=== PATIENT | male | born 1940 | race Caucasian/White ===

== ENCOUNTER 2017-07-20 10:33 | Observation (INO) | payer MEDICARE ==
[~2017-07-20] VITALS: Ht 167.6 cm; Wt 75.0 kg
[~2017-07-20 10:33] MED LIST: ASPI81 PO; ATOR80TA PO; DICY1TAB26 PO; IMOD2TAB PO; METO25 PO; ZOFR4TAB3 SL
[2017-07-20 10:37] VITALS: BP 182/81; PULSE 80; RESP 18; TEMP 97.2; O2SAT 98
[2017-07-20 10:48] VITALS: BP 181/89; PULSE 77
[2017-07-20] MEDS ORDERED: ASPI-516 CHEW (10:55)
[2017-07-20] MEDS ORDERED: METO25TA3 PO ×2 (10:55→17:29)
[2017-07-20] MEDS ORDERED: ATOR80TA45 PO (10:55)
--- NOTE | 2017-07-20 11:10 | PD ---
HPI Chief Complaint: Cardiac Complaint Time Seen by Provider: 10:42 Travel History International Travel<30 days: No Contact w/Intl Traveler<30days: No Traveled to known affect area: No History of Present Illness HPI 77-year-old male presents with episode of dizziness and weakness and when he checked his heart rate it was 160. He performed vagal maneuvers after instruction by the cardiac rehab nurse and his heart rate came down and his symptoms improved. He states now he just feels tired and has a little bit of chest tightness. He states Dr. Carrera is his embedded firmware developer. He states his last cardiac intervention was 20 years ago when he goes to cardiac rehab just for continual maintenance. He denies other specific modifying factors. Quality is tightness. Severity is mild. PFSH Past Medical History Hx Anticoagulant Therapy: Yes Cancer: No Cardiac Catheterization: Yes Cardiovascular Problems: Yes High Cholesterol: Yes Coronary Artery Disease: Yes Diabetes: No Diminished Hearing: No Endocrine: No Gastrointestinal Disorders: Yes (GERD, HX ESOPH STRICTURE) Glaucoma: No Genitourinary: Yes (BPH/ FREQUENCY, HX "BENIGN" BLADDER TUMOR) Hepatitis: Yes (UNKNOWN TYPE) Hiatal Hernia: No Hypertension: Yes Immune Disorder: No Inguinal Hernia: Yes (LEFT SIDE REPAIR) Musculoskeletal: Yes (ARTHRITIS) Neurologic: No Psychiatric: Yes (CLAUSTRAPHOBIA) Respiratory: No Thyroid Disease: No Tetanus Vaccination: Unknown ?: Not Past Surgical History Abdominal Surgery: Yes (LEFT ING. HERNIA REP) AICD: No Cardiac Surgery: Yes (CABG) Coronary Artery Bypass Graft: Yes (5-way VESSEL 1997) Coronary Stent: Yes (x 4 1996) Genitourinary Surgery: Yes (TURP, CYSTO TURBT) Joint Replacement: No Pacemaker: No Other Surgery: Yes (inguinal hernia 2002) Social History Alcohol Use: No Tobacco Use: No Substance Use: No Allergies-Medications (Allergen,Severity, Reaction): Coded Allergies: iohexol (Unverified Allergy, Unknown, pt states no allergy to this, ) Uncoded Allergies: ANTIHISTAMINE (Allergy, Intermediate, obstructs urination, 11/02/16) Reported Meds & Prescriptions Reported Meds & Active Scripts Active Reported Aspirin 81 Mg Chew 81 Mg CHEW DAILY Metoprolol Tartrate 25 Mg Tab 12.5 Mg PO DAILY Atorvastatin (Atorvastatin Calcium) 80 Mg Tab 80 Mg PO HS Review of Systems Except as stated in HPI: all other systems reviewed are Neg Physical Exam Narrative GENERAL: 77 y/o male in no apparent distress SKIN: Focused skin assessment warm/dry. HEAD: Atraumatic. Normocephalic. EYES: Pupils equal and round. No scleral icterus. No injection or drainage. ENT: No nasal bleeding or discharge. Mucous membranes pink and moist. NECK: Trachea midline. CARDIOVASCULAR: Regular rate and rhythm. RESPIRATORY: No accessory muscle use. Clear to auscultation. Breath sounds equal bilaterally. GASTROINTESTINAL: Abdomen soft, non-tender, nondistended. MUSCULOSKELETAL: No obvious deformities. No clubbing. No cyanosis. NEUROLOGICAL: Awake and alert. No obvious cranial nerve deficits. Motor grossly within normal limits. Normal speech. PSYCHIATRIC: Appropriate mood and affect; insight and judgment normal. Data Data Last Documented VS Vital Signs Date Time Temp Pulse Resp B/P (MAP) Pulse Ox O2 Delivery O2 Flow Rate FiO2 07/20/17 10:48 77 181/89 (119) 07/20/17 10:37 97.2 18 98 Orders Orders Magnesium (Mg) (07/20/17 10:42) Phosphorus (Po4) (07/20/17 10:42) Complete Blood Count With Diff (07/20/17 10:42) Comprehensive Metabolic Panel (07/20/17 10:42) Ckmb (Isoenzyme) Profile (07/20/17 10:42) Troponin I (07/20/17 10:42) Act Partial Throm Time (Ptt) (07/20/17 10:42) Prothrombin Time / Inr (Pt) (07/20/17 10:42) Chest, Single Ap (07/20/17 ) Electrocardiogram (07/20/17 ) Iv Access Insert/Monitor (07/20/17 10:42) Ecg Monitoring (07/20/17 10:42) Oximetry (07/20/17 10:42) CKMB (07/20/17 10:50) CKMB% (07/20/17 10:50) Admit Order (Ed Use Only) (07/20/17 14:16) Labs Laboratory Tests Test 07/20/17 10:50 White Blood Count 6.1 TH/MM3 Red Blood Count 4.89 MIL/MM3 Hemoglobin 14.7 GM/DL Hematocrit 42.9 % Mean Corpuscular Volume 87.7 FL Mean Corpuscular Hemoglobin 30.0 PG Mean Corpuscular Hemoglobin Concent 34.2 % Red Cell Distribution Width 13.8 % Platelet Count 236 TH/MM3 Mean Platelet Volume 8.8 FL Neutrophils (%) (Auto) 62.3 % Lymphocytes (%) (Auto) 19.5 % Monocytes (%) (Auto) 11.1 % Eosinophils (%) (Auto) 6.4 % Basophils (%) (Auto) 0.7 % Neutrophils # (Auto) 3.8 TH/MM3 Lymphocytes # (Auto) 1.2 TH/MM3 Monocytes # (Auto) 0.7 TH/MM3 Eosinophils # (Auto) 0.4 TH/MM3 Basophils # (Auto) 0.0 TH/MM3 CBC Comment DIFF FINAL Differential Comment Prothrombin Time 10.5 SEC Prothromb Time International Ratio 1.0 RATIO Activated Partial Thromboplast Time 25.7 SEC Blood Urea Nitrogen 16 MG/DL Creatinine 1.01 MG/DL Random Glucose 97 MG/DL Total Protein 7.3 GM/DL Albumin 4.1 GM/DL Calcium Level 9.1 MG/DL Phosphorus Level 2.1 MG/DL Magnesium Level 2.1 MG/DL Alkaline Phosphatase 94 U/L Aspartate Amino Transf (AST/SGOT) 26 U/L Alanine Aminotransferase (ALT/SGPT) 42 U/L Total Bilirubin 1.4 MG/DL Sodium Level 141 MEQ/L Potassium Level 4.0 MEQ/L Chloride Level 106 MEQ/L Carbon Dioxide Level 28.5 MEQ/L Anion Gap 7 MEQ/L Estimat Glomerular Filtration Rate 71 ML/MIN Total Creatine Kinase 117 U/L Creatine Kinase MB 2.1 NG/ML Troponin I LESS THAN 0.02 NG/ML MDM Medical Decision Making Medical Screen Exam Complete: Yes Emergency Medical Condition: Yes Medical Record Reviewed: Yes (h confirmed) Interpretation(s) CBC & BMP Diagram 07/20/17 10:50 Total Protein 7.3, Albumin 4.1, Calcium Level 9.1, Phosphorus Level 2.1 L, Magnesium Level 2.1, Alkaline Phosphatase 94, Aspartate Amino Transf (AST/SGOT) 26, Alanine Aminotransferase (ALT/SGPT) 42, Total Bilirubin 1.4 H Last 24 hours Impressions Chest X-Ray 07/20/17 0000 Signed Impressions: Service Date/Time: Thursday, July 20, 2017 11:12 - CONCLUSION: No acute cardiopulmonary abnormality is identified. Waldemar Nguyen MD Differential Diagnosis svt, a flutter with RVR, A. fib with RVR, electrolyte abnormality Narrative Course We will check blood work, chest x-ray and discuss with his embedded firmware developer Labs without emergent findings. Patient agrees to chest pain center observation Physician Communication Physician Communication dr beaulieu states ok for r developer Diagnosis Primary Impression: Chest pain Qualified Codes: R07.9 - Chest pain, unspecified Admitting Information Admitting Physician Requests: Rut Bernal MD July 20, 2017 11:10
[2017-07-20 11:25] LABS: AUTOMATED NEUTROPHIL # 3.8 TH/MM3 (1.8-7.7); BASOPHIL % 0.7 % (0.0-2.0); EOSINOPHIL # 0.4 TH/MM3 (0-0.4); EOSINOPHIL % 6.4 % (0.0-4.0); HEMATOCRIT 42.9 % (39.0-51.0); HEMOGLOBIN 14.7 GM/DL (13.0-17.0); LYMPH % 19.5 % (9.0-44.0); LYMPHOCYTE # 1.2 TH/MM3 (1.0-4.8); MEAN CELL VOLUME 87.7 FL (80.0-100.0); MEAN CORPUSCULAR HGB CONC 34.2 % (32.0-36.0); MEAN PLATELET VOLUME 8.8 FL (7.0-11.0); MONO % 11.1 % (0.0-8.0); MONOCYTE # 0.7 TH/MM3 (0-0.9); NEUT % 62.3 % (16.0-70.0); PLATELET COUNT 236 TH/MM3 (150-450); RED BLOOD COUNT 4.89 MIL/MM3 (4.50-5.90); RED CELL DISTRIBUTION WIDTH 13.8 % (11.6-17.2); WHITE BLOOD COUNT 6.1 TH/MM3 (4.0-11.0)
--- NOTE | 2017-07-20 11:31 | RADRPT ---
EXAM DATE/TIME: 07/20/2017 11:12 [place] COMPARISON: No previous studies available for comparison. INDICATIONS : Was at cardiac rehab and started getting dizzy. MEDICAL HISTORY : cardiac rehab for 20 years at [facility] SURGICAL HISTORY : CABG. 4 coronary artery stents, inguinal hernia repair. ENCOUNTER: Initial ACUITY: 1 day PAIN SCORE: 0/10 LOCATION: Bilateral chest FINDINGS: Portable AP view of the chest demonstrates a normal-sized cardiac silhouette post median sternotomy. Stents overlie the heart. EKG lines overlie the chest. There is mild interstitial prominence in the l ower lung zones with mild atelectasis at the right lung base. No effusion, consolidation, or pneumoth orax is present. Bones and soft tissues demonstrate no acute finding. CONCLUSION: No acute cardiopulmonary abnormality is identified. Waldemar Nguyen MD on July 20, 2017 at 11:28 Board Certified Radiologist. This report was verified electronically.
[2017-07-20 11:38] LABS: PROTHROMBIN TIME - PATIENT 10.5 SEC (9.8-11.6)
[2017-07-20 11:42] LABS: ALBUMIN 4.1 GM/DL (3.4-5.0); AST (GOT) 26 U/L (15-37); BICARBONATE 28.5 MEQ/L (21.0-32.0); BLOOD UREA NITROGEN 16 MG/DL (7-18); CALCIUM 9.1 MG/DL (8.5-10.1); CHLORIDE 106 MEQ/L (98-107); CREATININE 1.01 MG/DL (0.60-1.30); GLOMERULAR FILTRATION RATE 71 ML/MIN (>89); GLUCOSE,RANDOM 97 MG/DL (74-106); MAGNESIUM 2.1 MG/DL (1.5-2.5); SODIUM (NA) 141 MEQ/L (136-145)
[2017-07-20 11:49] LABS: ALKALINE PHOSPHATASE 94 U/L (45-117); ALT (GPT) 42 U/L (12-78); PHOSPHORUS 2.1 MG/DL (2.5-4.9); TOTAL BILIRUBIN ADULT 1.4 MG/DL (0.2-1.0); TOTAL PROTEIN 7.3 GM/DL (6.4-8.2); TROPONIN I LESS THAN 0.02 NG/ML (0.02-0.05)
[2017-07-20 15:23] VITALS: BP 167/75; PULSE 62; RESP 20
--- NOTE | 2017-07-20 17:33 | HHI.HP ---
HPI Service [facility] Hospitalists Primary Care Physician Jose Valdovinos MD Admission Diagnosis palpitation Travel History International Travel<30 Days: No Contact w/Intl Traveler <30 Da: No Traveled to Known Affected Are: No Past Family Social History Past Medical History cad. 4 stent 1996 cabg x 5 1997 lap leslie hernia repair tachycardia Reported Medications Reported Meds & Active Scripts Active Metoprolol Tartrate 25 Mg Tab 12.5 Mg PO HS Reported Aspirin 81 Mg Chew 81 Mg CHEW HS Atorvastatin (Atorvastatin Calcium) 80 Mg Tab 80 Mg PO HS Allergies: Coded Allergies: iohexol (Unverified Allergy, Unknown, pt states no allergy to this, ) Uncoded Allergies: ANTIHISTAMINE (Allergy, Intermediate, obstructs urination, 11/02/16) Family History nc Social History no tob no etoh Physical Exam Vital Signs heart reg lung cta abd s/nt ext no edema Vital Signs Date Time Temp Pulse Resp B/P (MAP) Pulse Ox O2 Delivery O2 Flow Rate FiO2 07/20/17 15:23 62 20 167/75 (105) 07/20/17 10:48 77 181/89 (119) 07/20/17 10:48 75 07/20/17 10:37 97.2 80 18 182/81 (114) 98 Laboratory Laboratory Tests Test 07/20/17 10:50 White Blood Count 6.1 Red Blood Count 4.89 Hemoglobin 14.7 Hematocrit 42.9 Mean Corpuscular Volume 87.7 Mean Corpuscular Hemoglobin 30.0 Mean Corpuscular Hemoglobin Concent 34.2 Red Cell Distribution Width 13.8 Platelet Count 236 Mean Platelet Volume 8.8 Neutrophils (%) (Auto) 62.3 Lymphocytes (%) (Auto) 19.5 Monocytes (%) (Auto) 11.1 Eosinophils (%) (Auto) 6.4 Basophils (%) (Auto) 0.7 Neutrophils # (Auto) 3.8 Lymphocytes # (Auto) 1.2 Monocytes # (Auto) 0.7 Eosinophils # (Auto) 0.4 Basophils # (Auto) 0.0 CBC Comment DIFF FINAL Differential Comment Prothrombin Time 10.5 Prothromb Time International Ratio 1.0 Activated Partial Thromboplast Time 25.7 Blood Urea Nitrogen 16 Creatinine 1.01 Random Glucose 97 Total Protein 7.3 Albumin 4.1 Calcium Level 9.1 Phosphorus Level 2.1 Magnesium Level 2.1 Alkaline Phosphatase 94 Aspartate Amino Transf (AST/SGOT) 26 Alanine Aminotransferase (ALT/SGPT) 42 Total Bilirubin 1.4 Sodium Level 141 Potassium Level 4.0 Chloride Level 106 Carbon Dioxide Level 28.5 Anion Gap 7 Estimat Glomerular Filtration Rate 71 Total Creatine Kinase 117 Creatine Kinase MB 2.1 Troponin I LESS THAN 0.02 Result Diagram: 07/20/17 1050 07/20/17 1050 Caprini VTE Risk Assessment Caprini VTE Risk Assessment: Mod/High Risk (score >= 2) Caprini Risk Assessment Model Point Value = 1 Point Value = 2 Point Value = 3 Point Value = 5 Age 41-60 Minor surgery BMI > 25 kg/m2 Swollen legs Varicose veins or History of unexplained or recurrent spontaneous Oral contraceptives or hormone replacement Sepsis (< 1 month) Serious lung disease, including pneumonia (< 1 month) Abnormal pulmonary function Acute myocardial infarction Congestive heart failure (< 1 month) History of inflammatory bowel disease Medical patient at bed rest Age 61-74 Arthroscopic surgery Major open surgery (> 45 min) Laparoscopic surgery (> 45 min) Malignancy Confined to bed (> 72 hours) Immobilizing plaster cast Central venous access Age >= 75 History of VTE Family history of VTE Factor V Leiden Prothrombin [id number] Lupus anticoagulant Anticardiolipin antibodies Elevated serum homocysteine Heparin-induced thrombocytopenia Other congenital or acquired thrombophilia Stroke (< 1 month) Elective arthroplasty Hip, pelvis, or leg fracture Acute spinal cord injury (< 1 month) Prophylaxis Regimen Total Risk Factor Score Risk Level Prophylaxis Regimen 0-1 Low Early ambulation 2 Moderate Order ONE of the following: *Sequential Compression Device (SCD) *Heparin 5000 units SQ BID 3-4 Higher Order ONE of the following medications: *Heparin 5000 units SQ TID *Enoxaparin/Lovenox 40 mg SQ daily (WT < 150 kg, CrCl > 30 mL/min) *Enoxaparin/Lovenox 30 mg SQ daily (WT < 150 kg, CrCl > 10-29 mL/min) *Enoxaparin/Lovenox 30 mg SQ BID (WT < 150 kg, CrCl > 30 mL/min) AND/OR *Sequential Compression Device (SCD) 5 or more Highest Order ONE of the following medications: *Heparin 5000 units SQ TID (Preferred with Epidurals) *Enoxaparin/Lovenox 40 mg SQ daily (WT < 150 kg, CrCl > 30 mL/min) *Enoxaparin/Lovenox 30 mg SQ daily (WT < 150 kg, CrCl > 10-29 mL/min) *Enoxaparin/Lovenox 30 mg SQ BID (WT < 150 kg, CrCl > 30 mL/min) AND *Sequential Compression Device (SCD) Assessment and Plan Problem List: (1) CAD (coronary artery disease) ICD Codes: I25.10 - Atherosclerotic heart disease of [place] coronary artery without angina pectoris (2) Tachyarrhythmia ICD Codes: R00.0 - Tachycardia, unspecified Mynor Varela MD July 20, 2017 17:33
[2017-07-20] MEDS ORDERED: POTASSIUM PHOSPHATE MONOBASIC 500 MG TAB PO ONE (20:00)
[2017-07-20] MEDS ORDERED: ASPIRIN 81 MG CHEW TAB CHEW SCH (21:00)
[2017-07-20] MEDS ORDERED: ATORVASTATIN 80 MG TAB PO SCH (21:00)
[2017-07-20] MEDS ORDERED: METOPROLOL TARTRATE 25 MG TAB PO SCH (21:00)
[2017-07-20 21:08] LABS: TROPONIN I LESS THAN 0.02 NG/ML (0.02-0.05)
[2017-07-20 22:52] VITALS: BP 138/74; PULSE 70; RESP 16; TEMP 98.2; O2SAT 96
[2017-07-20 23:57] VITALS: BP 127/68; PULSE 69; RESP 16; TEMP 98.3; O2SAT 95
[2017-07-21] VITALS (7 sets, daily range): BP systolic 107–166; BP diastolic 56–85; PULSE 67–85; RESP 15–16; TEMP 97.9–98.6; O2SAT 95–98
[2017-07-21 07:51] LABS: BICARBONATE 26.6 MEQ/L (21.0-32.0); CREATININE 0.96 MG/DL (0.60-1.30); MAGNESIUM 2.1 MG/DL (1.5-2.5); PHOSPHORUS 2.7 MG/DL (2.5-4.9)
[2017-07-21] MEDS ORDERED: DOCUSATE SODIUM 100 MG CAP PO SCH (11:00)
--- NOTE | 2017-07-21 11:15 | HHI.PR ---
Subjective Remarks Pt denies any further palpitations or chest tightness His HR has been stable on telemetry Pt denies any SOB. He ambulated with PT this morning without any significant drop in his O2 sats and HR remained between 70-80s per PT Objective Vitals Vital Signs Date Time Temp Pulse Resp B/P (MAP) Pulse Ox O2 Delivery O2 Flow Rate FiO2 07/21/17 08:15 76 07/21/17 07:44 98.0 75 16 166/85 (112) 96 07/21/17 04:18 97.9 67 15 135/59 (84) 95 07/21/17 04:05 71 07/21/17 01:00 71 07/20/17 23:57 98.3 69 16 127/68 (87) 95 07/20/17 22:52 98.2 70 16 138/74 (95) 96 07/20/17 18:52 07/20/17 15:23 62 20 167/75 (105) Result Diagram: 07/20/17 1050 07/21/17 0637 Other Results Laboratory Tests Test 07/20/17 10:50 07/20/17 19:52 07/21/17 06:37 White Blood Count 6.1 TH/MM3 Red Blood Count 4.89 MIL/MM3 Hemoglobin 14.7 GM/DL Hematocrit 42.9 % Mean Corpuscular Volume 87.7 FL Mean Corpuscular Hemoglobin 30.0 PG Mean Corpuscular Hemoglobin Concent 34.2 % Red Cell Distribution Width 13.8 % Platelet Count 236 TH/MM3 Mean Platelet Volume 8.8 FL Neutrophils (%) (Auto) 62.3 % Lymphocytes (%) (Auto) 19.5 % Monocytes (%) (Auto) 11.1 % Eosinophils (%) (Auto) 6.4 % Basophils (%) (Auto) 0.7 % Neutrophils # (Auto) 3.8 TH/MM3 Lymphocytes # (Auto) 1.2 TH/MM3 Monocytes # (Auto) 0.7 TH/MM3 Eosinophils # (Auto) 0.4 TH/MM3 Basophils # (Auto) 0.0 TH/MM3 CBC Comment DIFF FINAL Differential Comment Prothrombin Time 10.5 SEC Prothromb Time International Ratio 1.0 RATIO Activated Partial Thromboplast Time 25.7 SEC Blood Urea Nitrogen 16 MG/DL 20 MG/DL Creatinine 1.01 MG/DL 0.96 MG/DL Random Glucose 97 MG/DL 95 MG/DL Total Protein 7.3 GM/DL Albumin 4.1 GM/DL Calcium Level 9.1 MG/DL 9.0 MG/DL Phosphorus Level 2.1 MG/DL 2.7 MG/DL Magnesium Level 2.1 MG/DL 2.1 MG/DL Alkaline Phosphatase 94 U/L Aspartate Amino Transf (AST/SGOT) 26 U/L Alanine Aminotransferase (ALT/SGPT) 42 U/L Total Bilirubin 1.4 MG/DL Sodium Level 141 MEQ/L 141 MEQ/L Potassium Level 4.0 MEQ/L 4.2 MEQ/L Chloride Level 106 MEQ/L 108 MEQ/L Carbon Dioxide Level 28.5 MEQ/L 26.6 MEQ/L Anion Gap 7 MEQ/L 6 MEQ/L Estimat Glomerular Filtration Rate 71 ML/MIN 76 ML/MIN Total Creatine Kinase 117 U/L 103 U/L Creatine Kinase MB 2.1 NG/ML 1.9 NG/ML Troponin I LESS THAN 0.02 NG/ML LESS THAN 0.02 NG/ML Thyroid Stimulating Hormone 3rd Gen 2.110 uIU/ML Imaging Last Impressions Chest X-Ray 07/20/17 0000 Signed Impressions: Service Date/Time: Thursday, July 20, 2017 11:12 - CONCLUSION: No acute cardiopulmonary abnormality is identified. Waldemar Nguyen MD Objective Remarks General: NAD, AAOx3 Chest: CTA Cardiac: Regular Abd: +BS, soft ND/NT Ext: No edema A/P Problem List: (1) Tachyarrhythmia ICD Codes: R00.0 - Tachycardia, unspecified Status: Acute Plan: - Pt is a 77 y/o male with hx of CAD s/p CABG in 1997, HTN, Hyperlipidemia, who presented to the ED at [facility] on 07/20/17 after an episode of dizziness and weakness while he was at cardiac rehab but was not working out at the time the symptoms presented. He checked his heart rate and it was 160 when the symptoms occurred. He performed vagal maneuvers after instruction by the cardiac rehab nurse and his heart rate came down and his symptoms improved. - Pt was evaluated in the ED with serial CE were have been negative. - Pt was given oral potassium in the ED - He has been on telemetry overnight with occasional PVCs noted - Pt has remained asymptomatic and is anxious for discharge. - Pt will need to followup with Dr. Carrera, his aircraft structural repairer. We recommended that he have a Holter Monitor placed prior to discharge. There were no Holter monitors available so I called Dr. Carrera office and pt will go today upon discharge to there office for Holter Monitor placement. - Discussed evaluation with 2D echo but pt reports that he will wait and have this done at Dr. Carrera office. - Cont. Metoprolol - Pt will need to followup with his PCP, Dr. Peña, in 1 week (2) CAD (coronary artery disease) ICD Codes: I25.10 - Atherosclerotic heart disease of [place] coronary artery without angina pectoris Status: Chronic Sheba Zavala July 21, 2017 11:15
--- NOTE | 2017-07-21 11:17 | HHI.DCPOC ---
Discharge Care Plan Diagnosis: (1) Chest pain (2) CAD (coronary artery disease) (3) Tachyarrhythmia Goals to Promote Your Health * To prevent worsening of your condition and complications * To maintain your health at the optimal level Directions to Meet Your Goals Take your medications as prescribed Follow your dietary instruction Follow activity as directed Keep your appointments as scheduled Take your immunizations and boosters as scheduled If your symptoms worsen call your PCP, if no PCP go to Urgent Care Center or Emergency Room Smoking is Dangerous to Your Health. Avoid second hand smoke Call the 24-hour hour crisis hotline for domestic abuse at Sheba Zavala July 21, 2017 11:17
--- NOTE | 2017-07-21 15:50 | EKG ---
Date Performed: 07/20/2017 Time Performed: 10:46:52 PTAGE: 77 years EKG: Sinus rhythm WITH OCCASIONAL VENTRICULAR PREMATURE COMPLEXES MINIMAL VOLTAGE CRITERIA FOR LVH, CONSIDER NORMAL VA RIANT NONSPECIFIC T-WAVE ABNORMALITY BORDERLINE ECG PREVIOUS TRACING : 05/14/2014 17.06 Since the prior tracing, the premature ventricular contract ions are new. DOCTOR: Donna Bishop Interpretating Date/Time 07/21/2017 15:49:16
== END 2017-07-21 17:42 | disposition home or self-care (01) ==
LOC: NEPC 10:33 → NEDA 14:17 → NEPGCP 18:59
PROVIDERS: ADMIT Hospitalist; ATTEND Hospitalist
DX: I25.10 Atherosclerotic heart disease of native coronary artery without angina pectoris (principal); R00.0 Tachycardia, unspecified; I10 Essential (primary) hypertension; I49.3 Ventricular premature depolarization; E78.5 Hyperlipidemia, unspecified; K21.9 Gastro-esophageal reflux disease without esophagitis; Z95.1 Presence of aortocoronary bypass graft; Z95.5 Presence of coronary angioplasty implant and graft; Z79.899 Other long term (current) drug therapy; Z79.82 Long term (current) use of aspirin
CPT/HCPCS: 71045; 80048; 80053; 82550; 82552; 83735; 84100; 84443; 84484; 85025; 85610; 85730; 93005; 97161; 99285; G0378; G8987; G8988; G8989